=== PATIENT | female | born 1990 | race Caucasian/White ===

== ENCOUNTER → 2023-04-17 | Outpatient (CLI) | payer BC ==
--- NOTE | 2023-04-22 19:59 | MR ---
EXAMINATION TYPE: MR hand LT wo con DATE OF EXAM: 04/17/2023 COMPARISON: Radiographs 04/09/2023 HISTORY: 32-year-old female M7 9.645, Lt hand, tip of middle finger pain TECHNIQUE: Multiplanar, multisequence images of the left hand were obtained without IV contrast. FINDINGS: Detailed assessment of the tip of the middle finger is limited by large field of view of the hand. On coronal STIR, nonspecific tiny 3 mm cystic area in the deep pole at the level of the distal phalan geal shaft. No abnormal edema seen within the adjacent bone. No other discrete soft tissue abnormalit y is seen. No joint effusion and no osseous erosion is identified. No suspicious bone marrow replacement. There is mild degenerative change of the first CMC joint. No suspicious bone marrow replacement seen. IMPRESSION: 1. Nonspecific tiny 3 mm cyst in the pulp soft tissues of the distal middle finger (though only seen on the coronal STIR series). Unclear if this represents some type of epidermal inclusion or other cys t. No other discrete soft tissue abnormality or underlying bony abnormality is seen. 2. 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
== END | disposition home or self-care (01) ==
LOC: RADMRIMAIN 06:29
PROVIDERS: ATTEND Orthopaedic Surgery Hand Surgery
DX: M19.042 Primary osteoarthritis, left hand (principal); M85.642 Other cyst of bone, left hand

== ENCOUNTER → 2023-06-07 | Outpatient (CLI) | payer BC ==
[2023-06-07 15:00] LABS: Basophils # (A) 0.05 X 10*3/uL (0.00-0.10); Basophils % (A) 0.5 %; Eosinophils # (A) 0.12 X 10*3/uL (0.04-0.35); Eosinophils % (A) 1.3 %; HCT 37.7 % (37.2-46.3); HGB 11.8 d/dL (12.0-15.0); Lymphocytes # (A) 3.06 X 10*3/uL (0.90-5.00); Lymphocytes % (A) 32.8 %; MCH 25.2 pg (27.0-32.0); MCHC 31.3 d/dL (32.0-37.0); MCV 80.6 FL (80.0-97.0); Mean Platelet Volume 10.3 FL (9.5-12.2); Monocytes # (A) 0.45 X 10*3/uL (0.20-1.00); Monocytes % (A) 4.8 %; NRBC Per 100 WBC 0 X 10*3/uL (0.00-0.01); Neutrophils # (A) 5.61 X 10*3/uL (1.80-7.70); Neutrophils % (A) 60.3 %; Platelet Count 321 X 10*3/uL (140-440); RBC 4.68 X 10*6/uL (4.10-5.20); RDW 15.4 % (11.5-14.5); WBC 9.32 X 10*3/uL (4.50-10.00)
[2023-06-07 16:23] LABS: BUN/Creat Ratio 19.38 Ratio (12.00-20.00); Blood Urea Nitrogen 15.5 mg/dL (9.0-27.0); Calcium 9.7 mg/dL (8.7-10.3); Carbon Dioxide 26.6 mmol/L (21.6-31.8); Chloride 102 mmol/L (96-109); Glucose 81 mg/dL (70-110); Potassium 4.5 mmol/L (3.5-5.5); Sodium 139 mmol/L (135-145)
== END | disposition home or self-care (01) ==
LOC: LABWHC1 09:50
PROVIDERS: ATTEND Orthopaedic Surgery Hand Surgery
DX: Z01.812 Encounter for preprocedural laboratory examination (principal)
CPT/HCPCS: 36415; 80048; 85025

== ENCOUNTER 2023-06-13 08:00 | Day surgery (SDC) | payer BC ==
[2023-06-07 13:41] VITALS: BMI 33.0
--- NOTE | 2023-06-12 12:36 | P.HPOR ---
History of Present Illness H&P Date: 06/12/23 Subjective: This is a 32 year old female that presents today for follow up evaluation regarding a two year history of isolated left middle finger pain. She notes her pain is isolated at the very tip of the finger underneath the nail plate. She notes her symptoms are worse with extremes in temperature and has noted cold and sensitivity. She has not felt any mass and denies any injury or inciting event but notes that her pain is isolated only to the middle finger and is progr essively getting worse. Physical Examination: LUE: AIN/PIN/Radial/Ulnar/Median motor intact. Radial/Ulnar/Median SILT. 2+/4 Radial/Ulnar pulses palpated. 5/5 APB, 5/5 FDI. Negative Finkelsteins, negative CMC grind, negative Durkan's compression. TTP with palpation over nail plate along distal phalanx and on volar surface of volar pulp. No palpable mass present. Imaging: MRI of the left hand is reviewed and demonstrates a 3 mm soft tissue mass located at the tip of the middle finger seen only on coronal T2 image with hyperintense signal. Appears to be in close relation to the volar cortex of the distal phalanx. Impression: 1.) Left middle finger soft tissue mass Plan: Diagnosis and treatment options were discussed with the patient. We discussed that she has findings concerning for a possible glomus tumor considering her symptoms which are worse with direct palpation of the nail plate and isolated to the tip of the finger associated with temperature sensitivity.MRI findings do show a 3 mm mass located close to the cortex of the distal phalanx. She would like to pursue a left middle finger soft tissue mass excision. Risks and benefits of surgery including bleeding, infection, damage to surrounding tissue, need for further surgery, residual numbness were discussed and the patient wished to go forward with surgery. The patient was agreeable with this plan. -Kalia Okeefe DO Orthopedic Hand/Upper Extremity Surgeon Past Medical History Additional Past Medical History / Comment(s): anemia. MASS ON LT MIDDLE FINGER History of Any Multi-Drug Resistant Organisms: None Reported Past Surgical History: Section Additional Past Surgical History / Comment(s): wisdom teeth Past Anesthesia/Blood Transfusion Reactions: No Reported Reaction Smoking Status: Never smoker - Past Family History Mother Family Medical History: No Reported History Father Family Medical History: Cancer Medications and Allergies Home Medications Medication Instructions Recorded Confirmed Type No Known Home Medications 06/07/23 06/07/23 History Allergies Allergy/AdvReac Type Severity Reaction Status Date / Time No Known Allergies Allergy Verified 06/07/23 13:33 Physical Examination Osteopathic Statement: *. No significant issues noted on an osteopathic structural exam other than those noted in the History and Physical/Consult.
[~2023-06-13 08:00] MED LIST: DEXAMETHASONE SOD PHOSPHATE 4 MG/ML 1 ML VIAL IV ONE; HYDROmorphone 0.5 MG/0.5 ML SYRINGE IVP PRN; LACTATED RINGERS 1,000 ML IV SCH; LIDOCAINE 1% (10MG/ML) FOR IV START INTRADERMA PRN; MIDAZOLAM 2 MG/2 ML VIAL IV PRN; ONDANSETRON 4 MG/2 ML VIAL IVP ONE
[2023-06-13 08:32] VITALS: RESP 16; TEMP 97.3
[2023-06-13] MEDS ORDERED: MIDAZOLAM 2 MG/2 ML VIAL ONE (09:22)
[2023-06-13] MEDS ORDERED: PROPOFOL 10 MG/ML 20 ML VIAL IV ONE (09:22)
[2023-06-13] MEDS ORDERED: fentaNYL (PF) 50 MCG/ML 2 ML AMP ONE (09:22)
[2023-06-13] MEDS ORDERED: BUPIVACAINE (PF) 0.5% 30 ML VIAL SQ ONE (09:34)
[2023-06-13] MEDS ORDERED: LIDOCAINE 2% INJ 20 MG/ML SQ ONE (09:34)
[2023-06-13 10:10] VITALS: BP 102/67; PULSE 69
--- NOTE | 2023-06-18 13:10 | P.OP ---
Date of Procedure: 06/13/23 Preoperative Diagnosis: Left middle finger soft tissue mass Postoperative Diagnosis: Left middle finger soft tissue mass Procedure(s) Performed: Left middle finger soft tissue mass excision 3mm Anesthesia: MAC Surgeon: Kalia Okeefe Estimated Blood Loss (ml): 0 Pathology: other (Left middle finger soft tissue mass) Condition: stable Disposition: PACU Description of Procedure: This is a 33year old female with a history of a left middle finger painful soft tissue mass that has failed conservative treatment and presents today for a left middle finger soft tissue mass excision. Risks and benefits of surgery were discussed with the patient including bleeding, damage to surrounding tissue, infection, need for further surgery as well as risks of anesthesia including pulmonary embolism and even and the patient wished to proceed with surgical intervention. The patient was seen in the pre-operative area by myself. Consent and H&P were completed and updated. The correct extremity was marked in the pre-operative area by myself and all other questions were answered. Operative Narrative: The patient was brought to the operating room by the department of anesthesia. They remained on the portable stretcher and a rolling hand table was brought to the side of the operative extremity. Pre-operative time out was performed indicating the correct patient, procedure and laterality. All in the room agreed. Pre-operative antibiotics were given prior to skin incision. The patient was then drifted off to sleep by the department of anesthesia. Digital block was performed with 8cc's of 0.5% Lidocaine and 1% lidocaine in a 50:50 mixture. A nonsterile tourniquet was then applied to the operative extremity and the left upper extremity was then prepped and draped in normal sterile fashion. The operative extremity was then held to gravity and a tourniquet was inflated to 250mmHg. 15 blade scalpel was utilized to make a longitudinal incision over the distal phalanx of the left middle finger volar surface. Blunt dissection was taken down through subcutaneous tissues and fat to reveal a small 3mm white, soft round mass adhered to volar cortex of the distal phalanx. This was sharpley excised off of the periosteum with 15 blade scalpel, collected and sent for pathology evaluation. The wound was then closed with 4-0 nylon suture and a soft dressing was placed consisting of adaptic, 4x4s and loosely applied coban. Tourniquet was let down and the hand had immediate perfusion. The patient was then woken by the department of anesthesia and transferred to PACU in stable condition. Kalia Okeefe D.O. Orthopedic Hand/Upper Extremity Surgeon
== END 2023-06-13 10:37 | disposition home or self-care (01) ==
LOC: OR 08:00
PROVIDERS: ATTEND Orthopaedic Surgery Hand Surgery
DX: R22.32 Localized swelling, mass and lump, left upper limb (principal); K21.9 Gastro-esophageal reflux disease without esophagitis; Z98.890 Other specified postprocedural states
CPT/HCPCS: 26115; 81025; 88305; J2001; J2250; J1100; J2405; J3010; J2704; J0665